=== PATIENT | male | born 1975 | race Two or more races ===

== ENCOUNTER 2024-05-02 06:21 | Day surgery (SDC) | payer OTHER, SELFPAY | END 2024-05-02 10:10 | disposition home or self-care (01) | LOC: GI 06:21 | PROVIDERS: ATTENDING PHYSICIAN Internal Medicine Gastroenterology | DX: Z12.11 Encounter for screening for malignant neoplasm of colon (principal); K64.8 Other hemorrhoids; D12.8 Benign neoplasm of rectum; K63.5 Polyp of colon; K62.1 Rectal polyp | CPT/HCPCS: 45380; 88305 ==

== ENCOUNTER 2024-05-10 20:07 | Emergency (ER) | payer OTHER, SELFPAY ==
[2024-05-10 20:09] VITALS: BP 149/98
[2024-05-10 20:51] LABS: % Basophils 0.6 % (0-2); % Eosinophils 3.2 % (0-6); % Immature Granulocytes 0.3 % (0-0.5); % Lymphocytes 37.4 % (20.5-51.1); % Monocytes 4.7 % (1.7-9.3); % Neutrophils 53.8 % (42.2-75.2); Absolute Basophils 0.1 10^3/uL (0-0.2); Absolute Eosinophils 0.3 10^3/uL (0-0.7); Absolute Monocytes 0.5 10^3/uL (0.1-0.6); Absolute Neutrophils 5.7 10^3/uL (1.4-6.5); Hematocrit 42.1 % (39.0-52.0); Hemoglobin 14.8 g/dL (13.0-18.0); Mean Corp Hgb Conc. 35.2 g/dL (33.0-37.0); Mean Corpuscular Hgb 28.9 pg (27.0-31.0); Mean Corpuscular Volume 82.2 fL (80.0-94.0); Mean Platelet Volume 9.6 fL (7.4-10.4); Nucleated Red Blood Cells % 0 % (-); Platelet Count 246 10^3/uL (130-400); Red Blood Cell Count 5.12 10^6/uL (4.70-6.10); Red Cell Dist. Width 12.7 % (11.5-14.5); White Blood Cell Count 10.6 10^3/uL (4.8-10.8)
[2024-05-10 21:00] LABS: ALT (SGPT) 21 U/L (0-50); AST (SGOT) 20 U/L (17-59); Albumin 4.2 g/dl (3.5-5.0); Alkaline Phosphatase 64 U/L (38-126); Blood Urea Nitrogen 12 mg/dl (9-20); Calcium 9.2 mg/dl (8.4-10.2); Carbon Dioxide 23 mmol/L (22-30); Chloride 106 mmol/L (98-107); Glucose 125 mg/dl (70-99); Potassium 3.6 mmol/L (3.5-5.1); Sodium 139 mmol/L (135-145); Total Bilirubin 0.4 mg/dl (0.2-1.3); Total Protein 6.7 g/dl (6.3-8.2); eGFR > 60.00
[2024-05-10 21:13] LABS: Troponin I < 0.012 ng/ml
--- NOTE | 2024-05-10 21:31 | EDRN ---
Pt has had L side chest pain that was not bad couple days ago. Yesterday, pain started getting worse. Pt notes increased pain when he lies down. Pt called his doctor and was advised to come to ED for evaluation. Pain started 1 week ago and has
gotten progressively worse. Pain is now constant described as an ache that worsens with movement and cough. Pt does not note pain when he is 'doing something or exercising.' No sob, abd pain, n/v, fever/chills/cough, urinary symptoms, weakness,
dizziness. Pt says only change he noted one week ago is his olmesartan dosage was increased from 10mg to 20mg daily. Also, pt fell 2 weeks ago while snowboarding.
[2024-05-10 21:35] VITALS: BP 129/99
--- NOTE | 2024-05-10 21:58 | ED.GENMED ---
History of Present Illness
General
Chief Complaint: Cardiac Symptoms
Source: patient
Exam Limitations: none
Time Seen by Provider: 05/10/24 21:21
History of Present Illness
History of Present Illness:
49-year-old male otherwise quite healthy presents with more evident chest discomfort over the past week. On the left side of his chest that is made worse with coughing and motion. He notes he was snowboarding 2 weeks ago and fell. He also had a
colonoscopy about a week ago. He denies any exertional dyspnea or chest pain. No abdominal pain or vomiting. No paresthesias. No fever or cough. No other complaints at this time
Phy Exam
Physical Exam
Physical Exam:
General: Well-appearing male no acute respiratory distress
HEENT: Normocephalic atraumatic
Heart: Regular rate and rhythm
Lungs: Clear no wheeze
Abdomen: Soft nontender nondistended
Musculoskeletal exam: Reproducible chest wall tenderness upon palpation of the left anterior chest wall. No step-off or deformity.
Extremities: No cyanosis
Skin: Warm no rash
Course
Orders/Labs/Results
Orders:
Orders
05/10/24 20:09
Electrocardiogram (*1) Urgent
Reason for Study: Chest Pain
05/10/24 20:10
EKG- Treatment ONCE
05/10/24 20:12
CR Chest - 2 Views Urgent
Comment:
Reason For Exam: chest pain
05/10/24 20:23
Complete Blood Count/With Diff Urgent
Comprehensive Metabolic Panel Urgent
Troponin I Urgent
Abnormal Lab Results
05/10/24
20:23
Absolute Lymphs (auto) 4.0 H 10^3/uL
(1.2-3.4)
Glucose 125 H mg/dl
(70-99)
05/10/24 20:23
05/10/24 20:23
Vital Signs
Initial and Last Documented VS:
Initial Vital Signs
Temp Pulse Resp BP Pulse Ox
98.2 F 76 20 149/98 99
05/10/24 20:09 05/10/24 20:09 05/10/24 20:09 05/10/24 20:09 05/10/24 20:09
Last Documented Vital Signs
Temp Pulse Resp BP Pulse Ox
98.2 F 75 20 129/99 97
05/10/24 20:09 05/10/24 21:39 05/10/24 21:39 05/10/24 21:35 05/10/24 21:36
MDM/Problems Addressed
Differential Diagnosis Includes:
Chest pain. Consider chest wall strain versus fracture versus pneumothorax versus ACS. No risk factors for PE with stable vital signs do not suspect PE. Patient's pain is reproducible to the touch clinical exam more consistent with chest wall
discomfort. EKG shows sinus rhythm without ischemic changes x-ray is negative for rib fracture pneumothorax pleural effusion or pneumonia. Troponin is undetectable.
Workup most consistent with chest wall discomfort. Will recommend anti-inflammatories. No need for repeat troponin given duration of discomfort.
*Critical Care Note
Total Time (30-74mins, 75-104mins- exclusive of procedures): Not Applicable
ED Attending Note
-
Portions of this chart may have been created with voice recognition software.� Occasional wrong word or��sound alike� substitutions may have occurred due to the inherent limitations of voice recognition software.
Discharge Plan
Departure
Patient Disposition: Home (Routine Discharge)
Date of Disposition: 05/10/24
Time of Disposition: 22:01
Patient with high blood pressure during this ER visit?: No
Discharge Problem:
Chest wall pain
Instructions: Chest Pain (DC)
Prescriptions:
No Action
tamsulosin 0.4 mg Capsule
0.4 mg PO DAILY
fluticasone propionate [Flonase] 50 mcg/actuation [place]ge[place],Suspension
1 spray INTRANASAL DAILY
loratadine [Claritin] 10 mg Tablet
10 mg PO DAILY
olmesartan 5 mg Tablet
20 mg PO DAILY
Fish Oil
1 cap PO BID
Patient Comments:
pt does not know dose
fiber
3 tab PO BID
Patient Comments:
pt does not know dosage
Activity Restrictions/Additional Instructions:
You may use ibuprofen or Tylenol for pain. Return here for worsening symptoms otherwise follow-up with your doctor
Interventions
Interventions:
*Risk Screen - Suicide Last Done: 05/10/24 21:27
*General Assessment Last Done: 05/10/24 20:09
*Neglect/Abuse Screening Last Done: 05/10/24 21:27
*ED- Fall Risk Assessment Last Done: 05/10/24 21:27
*ED COVID-19 Vaccine History Last Done: 05/10/24 21:27
ED- Pulmonary Assessment Last Done: 05/10/24 21:39
ED- Cardiac Assessment Last Done: 05/10/24 21:39
Discharge Date and Time
Print Language: ROMANIAN
[2024-05-10 22:00] VITALS: BP 130/98
== END 2024-05-10 22:15 | disposition home or self-care (01) ==
LOC: EMR 20:07
PROVIDERS: Emergency Medicine; EMERGENCY PHYSICIAN Emergency Medicine; FAMILY PHYSICIAN Internal Medicine
DX: R07.89 Other chest pain (principal); V00.311A Fall from snowboard, initial encounter
CPT/HCPCS: 99285; 71046; 80053; 84484; 85025; 93005

== ENCOUNTER → 2024-05-22 09:49 | Outpatient (REF) | payer OTHER, SELFPAY | LOC: WDC 09:49 | PROVIDERS: ATTENDING PHYSICIAN Internal Medicine | DX: R59.0 Localized enlarged lymph nodes (principal); N64.4 Mastodynia; M79.622 Pain in left upper arm; N63.23 Unspecified lump in the left breast, lower outer quadrant | CPT/HCPCS: 76642; 77062; 77066 ==